=== PATIENT | female | born 1945 | race Caucasian/White ===

== ENCOUNTER 2016-08-28 09:50 | Inpatient (IN) | payer MEDICAID ==
[~2016-08-28] VITALS: Ht 154.9 cm; Wt 118.8 kg
[2016-08-28 09:50] VITALS: BP 106/51
[~2016-08-28 09:50] MED LIST: ACETAMINOPHEN-H1 TA2 PO; AMARYL4 MG PO; CIMETIDINE400 M1 PO; CLARITIN10 MG PO; Cimetidine400 MG PO; DILANTIN100 MG PO; EFFEXOR-XR75 MG PO; FAMOTIDINE20 M1 PO; FOSAMAX70 M1 PO; GLUCOPHAGE1000 MG PO; GLUCOPHAGE500 MG PO; HYDROCODONE BIT1 T11 PO; IMDUR30 MG PO; K-DUR 20MEQ20 MEQ PO; KEPPRA1000 MG PO; KEPPRA250 MG PO; LAMICTAL XR25 MG PO; LAMICTAL100 MG PO; LANTUS SOLOS100 U/M1 SC; LASIX40 MG PO; LEVEMIR FLEX100 U/ML SC; LIPITOR10 MG PO; LIPITOR20 MG PO; MACROBID100 M1 PO; METOPROLOL SUC100 M1 PO; METOPROLOL TART50 M1 PO; NORCO 5-325 TA1 EACH PO; OYSTER SHELL CA1 T11 PO; PEPCID AC20 M1 PO; PEPCID20 MG PO; PLAVIX75 MG PO; PROAIR HFA8.5 GM INH; ROBITUSSIN AC 110 ML PO; SEPTRA DS 800 M1 TAB PO; SLOW RELEASE I142 MG PO; TOPROL XL100 MG PO; TOPROL XL50 M1 PO; ULTRAM50 MG PO; VICODIN 5/500 505 MG PO; VICTOZA 3-PAK6 MG/ML SC; VICTOZA6 MG/ML SC; VITAMIN D31000 IU PO; ZITHROMAX Z PA250 MG PO; ZOFRAN ODT4 MG SL
[2016-08-28] MEDS ORDERED: AMMONIUM LACTATE121 T (10:06)
[2016-08-28] MEDS ORDERED: LIPITOR80 MG PO (10:07)
[2016-08-28] MEDS ORDERED: CALCIUM CARBONA1 TA8 PO (10:07)
[2016-08-28] MEDS ORDERED: IRON325 M2 PO (10:11)
[2016-08-28] MEDS ORDERED: LANTUS100 U/ML SC (10:12)
[2016-08-28] MEDS ORDERED: SYMBICORT1 AE1 INH (10:13)
[2016-08-28 10:17] LABS: BASO # 0.1 10*3/uL (0.0-0.1); BASO % 0.6 % (0.0-1.0); EOS # 0.7 10*3/uL (0.0-0.4); EOS % 5.3 % (1.0-4.0); LYMPH # 3.7 10*3/uL (1.3-4.4); LYMPH % 29.3 % (27.0-41.0); MEAN CELL VOLUME 87.1 fl (81.0-99.0); MEAN CORPUSCULAR HGB 28.3 pg (27.0-31.0); MEAN CORPUSCULAR HGB CONC 32.5 g/dl (33.0-37.0); MEAN PLATELET VOLUME 9.8 fl (9.6-12.3); MONO # 0.6 10*3/uL (0.1-1.0); MONO % 5.1 % (3.0-9.0); NEUT # 7.5 10*3/uL (2.3-7.9); NEUT % 59.5 % (47.0-73.0); PLATELET COUNT AUTOMATED 231 10*3/uL (130-400); RED BLOOD COUNT 4.59 10*6/uL (4.10-5.10); RED CELL DISTRI WIDTH 13.2 % (0-14.5); WHITE BLOOD COUNT 12.6 10*3/uL (4.8-10.8)
[2016-08-28 10:26] LABS: PROTHROMBIN TIME 10.5 SECONDS (9.0-12.4)
[2016-08-28 10:36] LABS: ALBUMIN 3.4 gm/dl (3.1-4.5); ALKALINE PHOSPHATASE 70 U/L (45-117); BILIRUBIN, TOTAL 0.3 mg/dl (0.2-1.0); BUN 17 mg/dl (7-24); CARBON DIOXIDE 24 mmol/L (21-32); CHLORIDE 105 mmol/L (98-107); EST GLOM FILT AFRICAN AMERICAN > 60 ml/min; GLUCOSE 219 mg/dL (65-99); POTASSIUM 4.4 mmol/L (3.5-5.1); SGOT/AST 20 IU/L (3-35); SGPT/ALT 23 U/L (12-78); SODIUM 139 mmol/L (136-145); TOTAL PROTEIN 6.6 gm/dL (6.4-8.2)
[2016-08-28 10:47] LABS: MAGNESIUM 0.9 mg/dL (1.5-2.1); TROPONIN I < 0.015 ng/ml (<0.045)
[2016-08-28 11:25] VITALS: BP 105/54
[2016-08-28 11:45] VITALS: BP 124/63
[2016-08-28 12:00] VITALS: BP 124/63
[2016-08-28] MEDS ORDERED: ISOSORBIDE DINI30 MG PO (12:31)
[2016-08-28] MEDS ORDERED: CALCIUM 250-VI1 EACH PO (12:32)
[2016-08-28 16:00] VITALS: BP 118/62
[2016-08-28 20:00] VITALS: BP 129/60
[2016-08-29] VITALS: BP 103/52
[2016-08-29 08:00] VITALS: BP 108/56
[2016-08-29 12:00] VITALS: BP 111/53
[2016-08-29 16:00] VITALS: BP 115/40
[2016-08-29 20:00] VITALS: BP 121/46
[2016-08-30] VITALS: BP 124/50
[2016-08-30 08:00] VITALS: BP 132/60
[2016-08-30] MEDS ORDERED: METOPROLOL SUCC50 M1 PO (08:17)
[2016-08-30] MEDS ORDERED: MAGOX 400400 MG PO (08:23)
[2016-08-30 12:00] VITALS: BP 140/62
[2016-08-30 17:03] VITALS: BP 120/42
== END 2016-08-30 16:51 | DRG 313 ==
LOC: ED 09:50 → EDHOLD 11:01 → 5E 11:19
PROVIDERS: Nurse Practitioner Family
PROC: 4A02XM4 Measurement of Cardiac Total Activity, External Approach (ICD-10-PCS; principal; 2016-08-30)
PROC: 3E073KZ Introduction of Other Diagnostic Substance into Coronary Artery, Percutaneous Approach (ICD-10-PCS; 2016-08-30)
DX: R07.2 Precordial pain (principal); I10 Essential (primary) hypertension; Z88.1 Allergy status to other antibiotic agents; Z88.4 Allergy status to anesthetic agent; Z88.6 Allergy status to analgesic agent; Z91.041 Radiographic dye allergy status; Z79.899 Other long term (current) drug therapy; Z90.710 Acquired absence of both cervix and uterus; Z96.659 Presence of unspecified artificial knee joint; Z87.891 Personal history of nicotine dependence; Z80.9 Family history of malignant neoplasm, unspecified; E11.9 Type 2 diabetes mellitus without complications; Z86.73 Personal history of transient ischemic attack (TIA), and cerebral infarction without residual deficits; G89.29 Other chronic pain; M25.511 Pain in right shoulder; M54.9 Dorsalgia, unspecified; M19.90 Unspecified osteoarthritis, unspecified site; Z79.4 Long term (current) use of insulin; R62.7 Adult failure to thrive

== ENCOUNTER → 2016-10-29 | Outpatient (CLI) | payer MEDICAID ==
[~2016-10-29] MED LIST changes: +AMMONIUM LACTATE121 T; +CALCIUM 250-VI1 EACH PO; +CALCIUM CARBONA1 TA8 PO; +IRON325 M2 PO; +ISOSORBIDE DINI30 MG PO; +LANTUS100 U/ML SC; +LIPITOR80 MG PO; +MAGOX 400400 MG PO; +METOPROLOL SUCC50 M1 PO; +SYMBICORT1 AE1 INH
== END | disposition home or self-care (01) ==
LOC: ORTHO 02:48
DX: M19.031 Primary osteoarthritis, right wrist (principal)

== ENCOUNTER 2017-05-20 00:34 | Emergency (ER) | payer MEDICAID ==
[~2017-05-20] VITALS: Ht 154.9 cm; Wt 102.5 kg
[2017-05-20 01:48] VITALS: BP 142/53
== END 2017-05-20 02:22 | disposition home or self-care (01) ==
LOC: ED 00:34
DX: F41.9 Anxiety disorder, unspecified (principal); N17.9 Acute kidney failure, unspecified; Z88.6 Allergy status to analgesic agent; Z91.041 Radiographic dye allergy status; Z88.8 Allergy status to other drugs, medicaments and biological substances; Z79.84 Long term (current) use of oral hypoglycemic drugs; Z79.4 Long term (current) use of insulin; Z86.73 Personal history of transient ischemic attack (TIA), and cerebral infarction without residual deficits; Z90.710 Acquired absence of both cervix and uterus

== ENCOUNTER 2017-09-05 20:02 | Emergency (ER) | payer MEDICAID ==
[~2017-09-05] VITALS: Ht 154.9 cm; Wt 102.5 kg
[2017-09-05 20:06] VITALS: BP 159/59
[2017-09-05] MEDS ORDERED: APLISOL5 TUB UNIT IC (20:33)
[2017-09-05] MEDS ORDERED: FLOVENT DISKUS50 MCG INH (20:36)
[2017-09-05] MEDS ORDERED: RISPERDAL0.5 MG PO (20:40)
[2017-09-05] MEDS ORDERED: TRAZODONE50 MG PO (20:40)
[2017-09-05] MEDS ORDERED: VENTOLIN 02.5 MG/3 M INH (20:41)
== END 2017-09-05 22:35 | disposition other institution (70) ==
LOC: ED 20:02
DX: T14.90XA Injury, unspecified, initial encounter (principal); M25.531 Pain in right wrist; M25.562 Pain in left knee; M54.2 Cervicalgia; M54.5 Low back pain; M79.1 Myalgia; Z88.4 Allergy status to anesthetic agent; Z88.6 Allergy status to analgesic agent; Z88.8 Allergy status to other drugs, medicaments and biological substances; Z88.1 Allergy status to other antibiotic agents; Z79.899 Other long term (current) drug therapy; Z87.891 Personal history of nicotine dependence; W18.39XA Other fall on same level, initial encounter; Y93.89 Activity, other specified; Y92.121 Bathroom in nursing home as the place of occurrence of the external cause; Y99.8 Other external cause status

== ENCOUNTER 2018-01-11 10:44 | Inpatient (IN) | payer MEDICAID ==
[~2018-01-11] VITALS: Ht 154.9 cm; Wt 98.9 kg
--- NOTE | ~2018-01-11 | PR ---
[place], [place] PROGRESS NOTE NAME: REN STINSON [facility] #: [id number] UNIT #: [id number] ROOM: 404 DOCTOR: AL FORREST MD BIRTHDATE: [birth year] DOS: 01/16/2018 SUBJECTIVE: The patient continues to feel better and now wants to go to long-term care facility. PHYSICAL EXAMINATION: GENERAL APPEARANCE: The patient is alert and oriented x 3, in no visible distress. Generalized weakness. VITAL SIGNS: Blood pressure 125/86, breathing 18 times per minute, heart rate of 93 beats per minute, afebrile, and the patient is morbidly obese. HEENT AND NECK: Exam within normal limits. CARDIOVASCULAR SYSTEM: Heart rate is regular in rate and rhythm. S1 and S2 normally audible. LUNGS: Clear to auscultation. ABDOMEN: Soft, nontender. No obvious organomegaly. Bowel sounds are present. EXTREMITIES: Without significant cyanosis or edema. IMPRESSION: 1. Generalized weakness and adult failure to thrive. The patient working with physical therapy and requesting long-term care placement again. 2. Left knee pain after injury from a fall. X-rays did not show any new abnormality. 3. Type 2 diabetes mellitus. Blood sugars are being monitored and treated. The patient remains on insulin and glimepiride. 4. Morbid obesity and adult failure to thrive. The patient working with physical therapy. 5. Benign essential hypertension, treated and controlled. 6. Generalized seizure disorder, treated and asymptomatic with Keppra. 7. Chronic primary insomnia, treated with trazodone. AL FORREST MD CM:PNTRANS [id number] AL FORREST MD 01/17/18 0435 interface
--- NOTE | ~2018-01-11 | PR ---
[place], [place] PROGRESS NOTE NAME: REN STINSON [facility] #: [id number] UNIT #: [id number] ROOM: 404 DOCTOR: AL FORREST MD BIRTHDATE: [birth year] DOS: 01/14/2018 SUBJECTIVE: The patient with generalized weakness. PHYSICAL EXAMINATION: VITAL SIGNS: Blood pressure 118/68, heart rate 86 beats per minute, breathing 16 times per minute, temperature 98 degrees Fahrenheit. GENERAL APPEARANCE: The patient is alert and oriented x 3, in no visible distress. Patient is morbidly obese. Generalized weakness. HEENT AND NECK: Exam within normal limits. CARDIOVASCULAR SYSTEM: Heart rate is regular in rate and rhythm. S1 and S2 normally audible. LUNGS: Clear to auscultation. ABDOMEN: Soft, nontender. No obvious organomegaly. Bowel sounds are present. EXTREMITIES: Without significant cyanosis or edema. IMPRESSION: 1. Generalized weakness, adult failure to thrive, fall at home and pain in the left knee. The patient now has decided that she wants to go back to the [facility] care facility where she was staying before because she was getting better care there and at home. She did not feel safe. 2. Left knee pain after a fall with no fracture on the x-ray. The patient working with physical therapy. 3. Type 2 diabetes mellitus. Blood sugars being monitored and treated. The patient on glimepiride and insulin. 4. Chronic primary insomnia, treated with trazodone as needed. 5. Behavioral issues treated with risperidone by Psychiatry. 6. Generalized seizure disorder, asymptomatic on Keppra. 7. Morbid obesity. The patient working with dietary. 8. Benign essential hypertension, treated and monitored and controlled. AL FORREST MD CM:PNTRANS [phone] AL FORREST MD 01/15/18409 interface
--- NOTE | ~2018-01-11 | WRIGHTHP ---
[place], [place] PATIENT HISTORY AND PHYSICAL EXAM NAME: REN STINSON [facility] #: [id number] UNIT #: [id number] ROOM: 404 DOCTOR: AL FORREST MD BIRTHDATE: [birth year] DOS: 01/11/2018 HISTORY OF PRESENT ILLNESS: The patient is a 72-year-old female who fell at home, hurting her left knee and she was having difficulty in walking. The patient lying on the floor for several hours. The patient denied hitting her head. The patient was recommended for admission for acute kidney disease because her creatinine had become elevated and for ambulatory dysfunction, unable to walk after falling and hurting her left knee. No chest pain, no increasing shortness of breath, no other GI or urinary symptoms. REVIEW OF SYSTEMS: RESPIRATORY: No increasing shortness of breath. GASTROINTESTINAL: No nausea, vomiting, diarrhea, constipation. CARDIOVASCULAR SYSTEM: No chest pains. FAMILY HISTORY: Noncontributory. HOME MEDICATIONS: Fosamax, Plavix, glimepiride, Keppra, metformin, Lipitor, insulin, risperidone, Flovent and Ventolin. ALLERGIES: KNOWN ALLERGIES TO GENERAL ANESTHESIA, TAPE, XANAX, ASPIRIN, CEPHALOSPORINS, IODINE, MOTRIN. PHYSICAL EXAMINATION: GENERAL: Alert, oriented to place and person, not a good historian, in no visible distress, morbid obesity, generalized weakness. VITAL SIGNS: Blood pressure 130/82, heart rate 86 beats per minute, breathing 18 times per minute, temperature of 98.6 degrees Fahrenheit. HEENT AND NECK: Extraocular movements are intact. Sclerae are anicteric. Oral mucosa is moist and clean. No obvious facial weakness. Neck is supple without any lymphadenopathy. No thyromegaly. No JVD. No carotid arterial bruits. LUNGS: Clear to auscultation. No wheezing. No rhonchi. CARDIOVASCULAR SYSTEM: Heart rate is regular in rate and rhythm. S1 and S2 normally audible. No significant murmur or any other abnormal cardiac sounds. ABDOMEN: Soft, nontender. No obvious organomegaly. Bowel sounds are present. No obvious herniation. EXTREMITIES: Without significant cyanosis or edema. Warm to touch. Left knee replacement. CENTRAL NERVOUS SYSTEM: Alert and oriented x 3. Cranial nerves II-XII are intact. Speech is normal. The patient is able to move all extremities. Normal muscle strength. Deep tendon reflexes are equal on both sides. Plantars were downgoing. LABORATORY DATA: Normal CBC. BUN and creatinine elevated to 39 and 1.27 from 0.8 on last study. X-rays of the left knee showing total replacement of the left knee. Normal serum electrolytes. IMPRESSION AND PLAN: [place], [place] PATIENT HISTORY AND PHYSICAL EXAM NAME: REN STINSON [facility] #: [id number] UNIT #: [id number] ROOM: [facility] DOCTOR: AL FORREST MD BIRTHDATE: [birth year] 1. The patient with left knee pain and inability to ambulate, was living at home recently with help from teacher of the handicapped. The patient was started on physical therapy and I will get a consult with Orthopedic Surgery, Dr. Perez. The patient apparently requires placement to the nursing facility again. 2. Type 2 diabetes mellitus. Blood sugars to be monitored and treated. The patient continued on glimepiride and insulin. 3. Chronic primary insomnia, treated with trazodone as needed. 4. Behavioral issues treated with risperidone by Psychiatry, which is being continued. 5. Generalized seizure disorder. The patient to be continued on Keppra. 6. Morbid obesity. The patient to be followed by Dietary. 7. Benign essential hypertension. Blood pressures to be monitored and treated. AL FORREST MD CM:HISPHYS:PATIENT HISTORY AND PHYSICAL EXAMINATION AL FORREST MD 01/26/18 0940 interface
--- NOTE | ~2018-01-11 | EKG ---
[place], [place] ELECTROCARDIOGRAM REPORT NAME: REN STINSON UNIT #: [id number] ROOM: 404 DOCTOR: SHOAIB DRAFT REPORT BIRTHDATE: [birth year] [facility] Test Date: 2018-01-11 Test Time: 12:50:14 Pat Name: REN STINSON Department: Room: [facility] Gender: F Applied Researcher: EKG.CO : 1945 Requested By: RILEY GELLER DNP Order Number: [id number] Reading MD: Earl Wang MD Measurements Intervals [place] Rate: 109 P: 40 TN: 184 QRS: 18 QRSD: 87 T: 60 QT: 322 QTc: 434 Interpretive Statements Sinus tachycardia Ventricular premature complex Electronically Signed On 01-12-2018 3:20:59 PST by Earl Wang MD CM:EKGRPT:ELECTROCARDIOGRAM REPORT [id number] RILEY IRAHETAANY DRAFT REPORT RILEY GELLER DNP
--- NOTE | ~2018-01-11 | DS ---
[place], [place] DISCHARGE SUMMARY NAME: REN STISNON [facility] #: [id number] UNIT #: [id number] ROOM: 404 DOCTOR: LON MAEAL Pierce BIRTHDATE: [birth year] DOS: 01/17/2018 DISCHARGE DIAGNOSES: 1. Generalized weakness and adult failure to thrive. 2. Left knee pain after injury from fall and history of left knee replacement. 3. Type 2 diabetes mellitus. 4. Morbid obesity. 5. Benign essential hypertension. 6. Generalized seizure disorder. 7. Chronic primary insomnia. 8. Benign essential hypertension. 9. Generalized anxiety disorder. 10. Morbid obesity. 11. Type 2 diabetes mellitus. HOSPITAL COURSE: The patient was presented with inability to ambulate after she fell on her left knee and the patient has pain. X-rays did not show any significant abnormality. Dr. Perez, the orthopedic surgeon was consulted. The patient worked with Physical Therapy and finally decided to go back to nursing facility from which she was discharged a month earlier. The patient has advanced disability going for long-term placement again to the nursing facility. Type 2 diabetes mellitus, blood sugars were monitored and treated and are better controlled, ranging between 84-163. Generalized seizure disorder, asymptomatic. The patient remains on Keppra. Morbid obesity. The patient followed by Dietary. Benign essential hypertension with blood pressures treated and controlled. The patient was earlier living at home with a car checker for a short time prior to which she was a penitentiary patient, now she wants to go back to her penitentiary living facility. LABORATORY DATA: Normal serum electrolytes. Blood sugar 161. Normal CBC. DISCHARGE MANAGEMENT: Victoza 1.2 mg subcutaneous daily, metoprolol succinate 50 mg daily. Magnesium oxide 400 mg b.i.d., Pepcid 20 mg daily, Tylenol 1000 mg 3 times a day as needed for pain, Plavix 75 mg a day, metformin 1000 mg b.i.d., glimepiride 4 mg daily, Lantus insulin 40 units daily, trazodone 25 mg at bedtime, risperidone 0.5 mg at bedtime, Keppra 1000 mg b.i.d., DuoNeb every 4 hours as needed for shortness of breath. Consult Physical Therapy. [place], [place] DISCHARGE SUMMARY NAME: REN STINSON UNIT #: [id number] ROOM: [facility] DOCTOR: AL FORREST MD BIRTHDATE: [birth year] AL FORREST MD CM:EVELYN [id number] AL FORREST MD 01/26/18 0941 interface
--- NOTE | ~2018-01-11 | PR ---
[place], [place] PROGRESS NOTE NAME: REN STINSON [facility] #: [id number] UNIT #: [id number] ROOM: 404 DOCTOR: AL FORREST MD BIRTHDATE: [birth year] DOS: 01/15/2018 OBJECTIVE: VITAL SIGNS: Blood pressure 130/73, heart rate 92 beats per minute, breathing 20 times per minute, temperature 98 degrees Fahrenheit. GENERAL APPEARANCE: The patient is alert and oriented x 3, in no visible distress, except for obesity and generalized weakness. HEENT AND NECK: Exam within normal limits. CARDIOVASCULAR SYSTEM: Heart rate is regular in rate and rhythm. S1 and S2 normally audible. LUNGS: Clear to auscultation. ABDOMEN: Soft, nontender. No obvious organomegaly. Bowel sounds are present. EXTREMITIES: Without significant cyanosis or edema. IMPRESSION AND PLAN: 1. Generalized weakness, adult failure to thrive, now the patient is requesting skilled nursing care facility placement, which she was refusing earlier on. 2. Left knee pains after a fall. X-rays show no fractures. 3. Type 2 diabetes mellitus. Blood sugars have been treated and controlled. The patient remains on insulin and glimepiride. 4. Morbid obesity, adult failure to thrive, generalized weakness. The patient is working with Physical Therapy. 5. Benign essential hypertension. Blood pressures are being monitored and staying normal. 6. Generalized seizure disorder, asymptomatic with Keppra. 7. Chronic primary insomnia, treated with trazodone. AL FORREST MD CM:PNTRANS [id number] AL FORREST MD 01/15/181916 interface
--- NOTE | ~2018-01-11 | PR ---
[place], [place] PROGRESS NOTE NAME: REN STINSON UNIT #: [id number] ROOM: 404 DOCTOR: AL FORREST MD BIRTHDATE: [birth year] DOS: 01/12/2018 SUBJECTIVE: The patient remains about the same, complains of left knee pains after her fall prior to this hospital admission. PHYSICAL EXAMINATION: GENERAL APPEARANCE: The patient is alert and oriented x 3, in no visible distress. Morbid obesity, generalized weakness. VITAL SIGNS: Blood pressure 130/78, heart rate 93 beats per minute, breathing 18 times per minute, temperature of 98.1 degrees Fahrenheit. HEENT AND NECK: Exam within normal limits. CARDIOVASCULAR SYSTEM: Heart rate is regular in rate and rhythm. S1 and S2 normally audible. LUNGS: Clear to auscultation. ABDOMEN: Soft, nontender. No obvious organomegaly. Bowel sounds are present. EXTREMITIES: Without significant cyanosis or edema. IMPRESSION: 1. The patient has history of left knee replacement and prosthesis with fall and injury to the left knee with pain, but x-ray did not show any acute abnormality. Orthopedic Surgery consulted for further evaluation. 2. Morbid obesity, generalized weakness and difficulty with ambulation. The patient to work with physical therapy. 3. rn social services consulted for placement. 4. Type 2 diabetes mellitus, uncontrolled. The patient is on glimepiride and insulin. Blood sugars are being monitored and treated, now ranging between 190-240. 5. Benign essential hypertension. Blood pressures are being monitored and treated and staying normal. 6. Morbid obesity. The patient to work with dietary. 7. Advanced adult failure to thrive. The patient requires long-term care. 8. Chronic primary insomnia, treated with trazodone. 9. Behavioral issues treated with risperidone by Psychiatry. [place], [place] PROGRESS NOTE NAME: REN STINSON UNIT #: [id number] ROOM: 404 DOCTOR: AL FORREST MD BIRTHDATE: [birth year] AL FORREST MD CM:PNTRANS [id number] AL FORREST MD 01/12/18 1557 interface
--- NOTE | ~2018-01-11 | PR ---
[place], [place] PROGRESS NOTE NAME: REN STINSON UNIT #: [id number] ROOM: 404 DOCTOR: AL FORREST MD BIRTHDATE: [birth year] DOS: 01/13/2018 SUBJECTIVE: The patient with significant left knee pains and difficulty with ambulation, working with physical therapy. OBJECTIVE: VITAL SIGNS: Blood pressure 134/78, heart rate 89 beats per minute, breathing 20 times per minute, temperature 98 degrees Fahrenheit. GENERAL APPEARANCE: The patient is alert and oriented x 3, in no visible distress except for morbid obesity, generalized weakness. HEENT AND NECK: Exam within normal limits. CARDIOVASCULAR SYSTEM: Heart rate is regular in rate and rhythm. S1 and S2 normally audible. LUNGS: Clear to auscultation. ABDOMEN: Soft, nontender. No obvious organomegaly. Bowel sounds are present. EXTREMITIES: Without significant cyanosis or edema. IMPRESSION AND PLAN: 1. Fall with left knee injury with no fractures or displacement on the x-ray. The patient requires rehab at a nursing facility, but she is refusing, so after giving her physical therapy today and tomorrow after discharge her to home tomorrow and keep her on home physical therapy. 2. Morbid obesity, generalized weakness, and difficulty with ambulation. The patient working with physical therapy. 3. The patient working with social work assistant for discharge planning and case management. 4. Type 2 diabetes mellitus, being treated and controlled. The patient on glimepiride and insulin. 5. Chronic primary insomnia. 6. Adult failure to thrive. The patient requires long-term care at a facility, but she generally refuses. 7. Behavioral issues followed by Psychiatry and the patient remains on risperidone. 8. Morbid obesity. The patient is working with dietary. [place], [place] PROGRESS NOTE NAME: REN STINSON UNIT #: [id number] ROOM: 404 DOCTOR: AL FORREST MD BIRTHDATE: [birth year] AL FORREST MD CM:PNTRANS [id number] AL FORREST MD 01/13/18 1316 interface
[~2018-01-11 10:44] MED LIST changes: +APLISOL5 TUB UNIT IC; +FLOVENT DISKUS50 MCG INH; +RISPERDAL0.5 MG PO; +TRAZODONE50 MG PO; +VENTOLIN 02.5 MG/3 M INH
[2018-01-11 10:45] VITALS: BP 123/52
[2018-01-11 11:38] VITALS: BP 114/62
[2018-01-11 11:49] LABS: BASO % 0.4 % (0.0-1.0); EOS # 0.2 10*3/uL (0.0-0.4); EOS % 1.4 % (1.0-4.0); HEMATOCRIT 40.8 % (37.0-47.0); HEMOGLOBIN 12.9 g/dl (12.0-16.0); LYMPH # 2.1 10*3/uL (1.3-4.4); LYMPH % 20.2 % (27.0-41.0); MEAN CELL VOLUME 88.3 fl (81.0-99.0); MEAN CORPUSCULAR HGB 27.9 pg (27.0-31.0); MEAN CORPUSCULAR HGB CONC 31.6 g/dl (33.0-37.0); MEAN PLATELET VOLUME 9.6 fl (9.6-12.3); MONO # 0.5 10*3/uL (0.1-1.0); MONO % 5.2 % (3.0-9.0); NEUT # 7.5 10*3/uL (2.3-7.9); NEUT % 72.3 % (47.0-73.0); PLATELET COUNT AUTOMATED 230 10*3/uL (130-400); RED BLOOD COUNT 4.62 10*6/uL (4.10-5.10); RED CELL DISTRI WIDTH 13.7 % (0-14.5); WHITE BLOOD COUNT 10.4 10*3/uL (4.8-10.8)
[2018-01-11 12:07] LABS: ALBUMIN 3.5 gm/dl (3.1-4.5); CREATININE 1.27 mg/dL (0.55-1.02); POTASSIUM 5.4 mmol/L (3.5-5.1); TOTAL PROTEIN 7.2 gm/dL (6.4-8.2)
[2018-01-11 13:40] VITALS: BP 114/71
[2018-01-11] MEDS ORDERED: TYLENOL EXTRA500 M2 PO (14:32)
[2018-01-11] MEDS ORDERED: VICTOZA 2-0.6 MG/0.1 SQ (14:33)
[2018-01-11] MEDS ORDERED: VITAMIN D32000 UNIT PO (14:35)
[2018-01-11] MEDS ORDERED: KEPPRA1000 MG PO (14:36)
[2018-01-11 16:00] VITALS: BP 129/81
[2018-01-11 20:00] VITALS: BP 128/62
[2018-01-12] VITALS: BP 132/82
[2018-01-12 07:11] LABS: BUN 36 mg/dl (7-24); CHLORIDE 108 mmol/L (98-107); SODIUM 139 mmol/L (136-145)
[2018-01-12 07:17] LABS: POTASSIUM 4.4 mmol/L (3.5-5.1)
[2018-01-12 08:00] VITALS: BP 130/82
[2018-01-12 09:44] LABS: BILIRUBIN NEGATIVE (NEGATIVE); BLOOD 1+ (NEGATIVE); CLARITY CLOUDY (CLEAR); COLOR YELLOW (YELLOW); GLUCOSE NEGATIVE (NEGATIVE); KETONE NEGATIVE (NEGATIVE); LEUKO ESTERASE TRACE (NEGATIVE); NITRITE POSITIVE (NEGATIVE); PH 5.5 (5.0-9.0); SPECIFIC GRAVITY 1.025 (1.005-1.030); UROBILINOGEN 0.2 E.U./dl (0.2-1.0)
[2018-01-12 10:02] LABS: BACTERIA 4+; RBC 21-30 rbc/hpf (0-2); WBC 21-30 wbc/hpf (0-5)
[2018-01-12 12:00] VITALS: BP 130/78
[2018-01-12 13:30] VITALS: BP 130/78
[2018-01-12 16:00] VITALS: BP 147/87
[2018-01-12 20:00] VITALS: BP 111/58
[2018-01-13] VITALS: BP 123/58
[2018-01-13 06:58] LABS: CHLORIDE 103 mmol/L (98-107); CREATININE 0.91 mg/dL (0.55-1.02); POTASSIUM 4.1 mmol/L (3.5-5.1); SODIUM 136 mmol/L (136-145)
[2018-01-13 07:06] LABS: BUN 26 mg/dl (7-24)
[2018-01-13 08:00] VITALS: BP 134/78
[2018-01-13 12:00] VITALS: BP 130/81
[2018-01-13 16:00] VITALS: BP 131/65
[2018-01-13 20:00] VITALS: BP 133/66
[2018-01-14] VITALS: BP 121/67
[2018-01-14 06:45] LABS: BUN 23 mg/dl (7-24); CHLORIDE 103 mmol/L (98-107); CREATININE 0.89 mg/dL (0.55-1.02); SODIUM 138 mmol/L (136-145)
[2018-01-14 08:00] VITALS: BP 112/68
[2018-01-14 11:38] VITALS: BP 118/68
[2018-01-14 16:00] VITALS: BP 107/66
[2018-01-14 20:00] VITALS: BP 110/68
[2018-01-15] VITALS: BP 105/81
[2018-01-15 12:00] VITALS: BP 130/73
[2018-01-15 16:00] VITALS: BP 140/75
[2018-01-15 20:00] VITALS: BP 113/67
[2018-01-16] VITALS: BP 121/61
[2018-01-16 08:00] VITALS: BP 125/86
[2018-01-16 12:00] VITALS: BP 126/65
[2018-01-16 16:00] VITALS: BP 133/66
[2018-01-16 20:00] VITALS: BP 131/51
[2018-01-17] VITALS: BP 139/48
[2018-01-17 08:00] VITALS: BP 126/70
[2018-01-17 12:00] VITALS: BP 123/54
[2018-01-17 16:00] VITALS: BP 116/52; BP 125/62
[2018-01-17] MEDS ORDERED: AUGMENTIN 875-875 MG PO (17:33)
== END 2018-01-17 19:35 | DRG 555 ==
LOC: ED 10:44 → 4E 12:53 → EDHOLD 12:53 → 4E 13:11
PROVIDERS: Internal Medicine; Nurse Practitioner Family
DX: M25.562 Pain in left knee (principal); N17.0 Acute kidney failure with tubular necrosis; Z68.41 Body mass index [BMI] 40.0-44.9, adult; G40.409 Other generalized epilepsy and epileptic syndromes, not intractable, without status epilepticus; E66.01 Morbid (severe) obesity due to excess calories; R62.7 Adult failure to thrive; F41.1 Generalized anxiety disorder; I10 Essential (primary) hypertension; E11.9 Type 2 diabetes mellitus without complications; F51.04 Psychophysiologic insomnia; F51.01 Primary insomnia; Z96.652 Presence of left artificial knee joint; W18.39XA Other fall on same level, initial encounter; Z79.84 Long term (current) use of oral hypoglycemic drugs; Z79.899 Other long term (current) drug therapy; Z79.02 Long term (current) use of antithrombotics/antiplatelets; Z88.8 Allergy status to other drugs, medicaments and biological substances; Z88.6 Allergy status to analgesic agent; Z88.1 Allergy status to other antibiotic agents; Z88.4 Allergy status to anesthetic agent; Z91.041 Radiographic dye allergy status; Z91.048 Other nonmedicinal substance allergy status; Y93.89 Activity, other specified; Y92.89 Other specified places as the place of occurrence of the external cause; Y99.8 Other external cause status

== ENCOUNTER → 2023-03-09 | Outpatient (CLI) | payer MEDICAID ==
[~2023-03-09] MED LIST changes: +AUGMENTIN 875-875 MG PO; +TYLENOL EXTRA500 M2 PO; +VICTOZA 2-0.6 MG/0.1 SQ; +VITAMIN D32000 UNIT PO
== END | disposition home or self-care (01) ==
LOC: ORTHO 01:20
PROVIDERS: ATTEND Orthopaedic Surgery
DX: M19.021 Primary osteoarthritis, right elbow (principal)